=== PATIENT | male | born 1985 | race Caucasian/White ===

== ENCOUNTER 2017-10-03 23:56 | Emergency (ER) | payer OTHER ==
[~2017-10-03] VITALS: Wt 158.8 kg
[2017-10-03 23:56] VITALS: BP 147/84
[~2017-10-03 23:56] MED LIST: ALBUTEROL0.09 MG/A2 IH; AMOXICILLIN500 MG PO; AMOXIL500 MG PO; FLEXERIL10 MG PO; HYDROCODONE BIT1 T11 PO; MOTRIN800 MG PO; NAPROSYN500 MG PO; NKHM; PREDNICOT20 MG PO; PREDNISONE20 MG PO; VIBRAMYCIN100 MG PO; ZITHROMAX Z PA250 MG PO
[2017-10-04] MEDS ORDERED: MELATONIN1 MG PO (00:09)
[2017-10-04] MEDS ORDERED: ALLOPURINOL300 MG PO (00:09)
[2017-10-04] MEDS ORDERED: CIPRODEX 0.3%-7.5 ML OT (00:30)
[2017-10-04] MEDS ORDERED: CIPRO500 MG PO (00:30)
== END 2017-10-04 00:36 | disposition home or self-care (01) ==
LOC: ED 23:56
DX: H60.91 Unspecified otitis externa, right ear (principal); F17.200 Nicotine dependence, unspecified, uncomplicated; Z79.899 Other long term (current) drug therapy

== ENCOUNTER → 2018-10-15 | Outpatient (CLI) | payer OTHER ==
[~2018-10-15] MED LIST changes: +ALLOPURINOL300 MG PO; +AVPAK AZITHROM250 MG PO; +CIPRO500 MG PO; +CIPRODEX 0.3%-7.5 ML OT; +MELATONIN1 MG PO; +MUCINEX1200 M1 PO; +PREDNISONE50 MG PO; +PROAIR HFA8.5 GM INH
== END | disposition home or self-care (01) ==
LOC: RESCLI 12:38
DX: J45.909 Unspecified asthma, uncomplicated (principal); I10 Essential (primary) hypertension; M10.9 Gout, unspecified; G47.00 Insomnia, unspecified; G47.33 Obstructive sleep apnea (adult) (pediatric); Z71.89 Other specified counseling; Z79.899 Other long term (current) drug therapy; Z88.8 Allergy status to other drugs, medicaments and biological substances

== ENCOUNTER → 2018-12-07 | Outpatient (CLI) | payer OTHER ==
[2018-12-07 13:45] LABS: BASO # 0.1 10*3/uL (0.0-0.1); BASO % 0.8 % (0.0-1.0); EOS # 0.1 10*3/uL (0.0-0.4); EOS % 1.2 % (1.0-4.0); HEMOGLOBIN 16.5 g/dl (14.0-18.0); LYMPH # 2.7 10*3/uL (1.3-4.4); LYMPH % 29.2 % (27.0-41.0); MEAN CELL VOLUME 93.7 fl (80.0-94.0); MEAN CORPUSCULAR HGB 31.5 pg (27.0-31.0); MEAN CORPUSCULAR HGB CONC 33.7 g/dl (33.0-37.0); MEAN PLATELET VOLUME 11.7 fl (9.6-12.3); MONO # 1.1 10*3/uL (0.1-1.0); MONO % 11.6 % (3.0-9.0); NEUT # 5.3 10*3/uL (2.3-7.9); NEUT % 56.8 % (47.0-73.0); PLATELET COUNT AUTOMATED 214 10*3/uL (130-400); RED BLOOD COUNT 5.23 10*6/uL (4.50-5.90); RED CELL DISTRI WIDTH 13.7 % (0-14.5); WHITE BLOOD COUNT 9.3 10*3/uL (4.8-10.8)
[2018-12-07 14:16] LABS: ALBUMIN 3.6 gm/dl (3.1-4.5); ALKALINE PHOSPHATASE 42 U/L (45-117); BUN 11 mg/dl (7-24); CHLORIDE 103 mmol/L (98-107); CHOLESTEROL 188 mg/dL (<200); CREATININE 0.85 mg/dL (0.70-1.30); HDL CHOLESTEROL 29 mg/dl (40-60); POTASSIUM 3.9 mmol/L (3.5-5.1); SGOT/AST 26 IU/L (3-35); SGPT/ALT 49 U/L (12-78); SODIUM 139 mmol/L (136-145); TOTAL PROTEIN 7.1 gm/dL (6.4-8.2); TRIGLYCERIDES 502 mg/dl (<150); URIC ACID 6.3 mg/dL (3.5-7.2)
[2018-12-07 14:36] LABS: VITAMIN D, 25-HYDROXY 14.4 ng/mL (30-100)
[2018-12-07 14:40] LABS: FREE T4 0.86 ng/dl (0.76-1.46)
== END | disposition home or self-care (01) ==
LOC: LAB 13:15
PROVIDERS: Student in an Organized Health Care Education/Training Program
DX: I10 Essential (primary) hypertension (principal)

== ENCOUNTER → 2018-12-11 | Outpatient (CLI) | payer OTHER | END | disposition home or self-care (01) | LOC: RESCLI 00:34 | DX: J45.909 Unspecified asthma, uncomplicated (principal); M10.9 Gout, unspecified; G47.00 Insomnia, unspecified; I10 Essential (primary) hypertension; E66.01 Morbid (severe) obesity due to excess calories; Z72.0 Tobacco use; Z71.6 Tobacco abuse counseling; B07.8 Other viral warts; Z79.899 Other long term (current) drug therapy; Z88.8 Allergy status to other drugs, medicaments and biological substances ==

== ENCOUNTER → 2019-01-13 | Outpatient (CLI) | payer OTHER | END | disposition home or self-care (01) | LOC: RESCLI 01:20 | DX: Z23 Encounter for immunization (principal); J45.909 Unspecified asthma, uncomplicated; M10.9 Gout, unspecified; G47.00 Insomnia, unspecified; I10 Essential (primary) hypertension; E78.1 Pure hyperglyceridemia; E66.01 Morbid (severe) obesity due to excess calories; F17.200 Nicotine dependence, unspecified, uncomplicated; Z68.43 Body mass index [BMI] 50.0-59.9, adult; Z71.6 Tobacco abuse counseling; Z79.899 Other long term (current) drug therapy ==

== ENCOUNTER → 2019-03-23 | Outpatient (CLI) | payer OTHER | END | disposition home or self-care (01) | LOC: RESCLI 02:16 | DX: J45.909 Unspecified asthma, uncomplicated (principal); M10.9 Gout, unspecified; G47.00 Insomnia, unspecified; I10 Essential (primary) hypertension; E55.9 Vitamin D deficiency, unspecified; B97.89 Other viral agents as the cause of diseases classified elsewhere; J01.90 Acute sinusitis, unspecified; E66.01 Morbid (severe) obesity due to excess calories; Z71.6 Tobacco abuse counseling; Z79.899 Other long term (current) drug therapy; Z72.0 Tobacco use ==

== ENCOUNTER → 2019-04-26 | Outpatient (CLI) | payer OTHER ==
[2019-04-26 17:02] LABS: FREE T4 0.75 ng/dl (0.76-1.46)
== END | disposition home or self-care (01) ==
LOC: LAB 15:37
PROVIDERS: Internal Medicine
DX: I10 Essential (primary) hypertension (principal); E55.9 Vitamin D deficiency, unspecified

== ENCOUNTER → 2019-04-27 | Outpatient (CLI) | payer OTHER | END | disposition home or self-care (01) | LOC: RESCLI 05:45 | DX: Z71.6 Tobacco abuse counseling (principal); J45.909 Unspecified asthma, uncomplicated; M10.9 Gout, unspecified; G47.00 Insomnia, unspecified; I10 Essential (primary) hypertension; E55.9 Vitamin D deficiency, unspecified; J01.90 Acute sinusitis, unspecified; E78.1 Pure hyperglyceridemia; E66.01 Morbid (severe) obesity due to excess calories; Z72.0 Tobacco use; Z79.899 Other long term (current) drug therapy ==

== ENCOUNTER 2020-05-09 16:38 | Inpatient (IN) | payer OTHER ==
[~2020-05-09] VITALS: Ht 172.7 cm; Wt 156.5 kg
[2020-05-09 16:45] VITALS: BP 154/89
[2020-05-09 19:51] LABS: BASO # 0.1 10*3/uL (0.0-0.1); BASO % 0.4 % (0.0-1.0); EOS # 0.1 10*3/uL (0.0-0.4); EOS % 0.6 % (1.0-4.0); HEMATOCRIT 52.1 % (42.0-52.0); LYMPH # 1.7 10*3/uL (1.3-4.4); LYMPH % 10.3 % (27.0-41.0); MEAN CELL VOLUME 93.7 fl (80.0-94.0); MEAN CORPUSCULAR HGB 30.8 pg (27.0-31.0); MEAN CORPUSCULAR HGB CONC 32.8 g/dl (33.0-37.0); MEAN PLATELET VOLUME 11.4 fl (9.6-12.3); MONO # 1.5 10*3/uL (0.1-1.0); MONO % 8.9 % (3.0-9.0); NEUT # 13.2 10*3/uL (2.3-7.9); NEUT % 79.4 % (47.0-73.0); PLATELET COUNT AUTOMATED 237 10*3/uL (130-400); RED BLOOD COUNT 5.56 10*6/uL (4.50-5.90); RED CELL DISTRI WIDTH 14.6 % (0-14.5); WHITE BLOOD COUNT 16.7 10*3/uL (4.8-10.8)
[2020-05-09 19:54] VITALS: BP 148/106
[2020-05-09 20:10] LABS: ALBUMIN 4.1 gm/dl (3.1-4.5); ALKALINE PHOSPHATASE 54 U/L (45-117); BUN 12 mg/dl (7-24); CHLORIDE 103 mmol/L (98-107); POTASSIUM 3.6 mmol/L (3.5-5.1); SGOT/AST 14 IU/L (3-35); SGPT/ALT 37 U/L (12-78); SODIUM 137 mmol/L (136-145); TOTAL PROTEIN 8.1 gm/dL (6.4-8.2)
[2020-05-09] MEDS ORDERED: VITAMIN D31250 MCG PO (22:21)
[2020-05-09] MEDS ORDERED: CARVEDILOL3.125 MG PO (22:23)
[2020-05-09] MEDS ORDERED: LISINOPRIL10 M1 PO (22:23)
[2020-05-09] MEDS ORDERED: BUPROPION HYDR150 M3 PO (22:23)
[2020-05-09] MEDS ORDERED: Synthroid,Levo25 MCG PO (22:24)
[2020-05-09] MEDS ORDERED: VITAMIN D350 MC2 PO (22:24)
[2020-05-09] MEDS ORDERED: ONE-DAILY MULT1 EAC1 PO (22:25)
[2020-05-10] VITALS (12 sets, daily range): BP systolic 130–167; BP diastolic 75–106
[2020-05-10 06:17] LABS: HEMATOCRIT 46.2 % (42.0-52.0); MEAN CELL VOLUME 94.5 fl (80.0-94.0); MEAN CORPUSCULAR HGB 30.5 pg (27.0-31.0); MEAN CORPUSCULAR HGB CONC 32.3 g/dl (33.0-37.0); MEAN PLATELET VOLUME 12.2 fl (9.6-12.3); PLATELET COUNT AUTOMATED 194 10*3/uL (130-400); RED BLOOD COUNT 4.89 10*6/uL (4.50-5.90); RED CELL DISTRI WIDTH 14.7 % (0-14.5); WHITE BLOOD COUNT 16.3 10*3/uL (4.8-10.8)
[2020-05-10 06:27] LABS: BUN 8 mg/dl (7-24); CHLORIDE 106 mmol/L (98-107); CREATININE 0.82 mg/dL (0.70-1.30); POTASSIUM 3.5 mmol/L (3.5-5.1); SODIUM 137 mmol/L (136-145)
[2020-05-10 06:39] LABS: FREE T4 0.98 ng/dl (0.76-1.46)
[2020-05-10 07:49] LABS: ATYPICAL LYMPHS 1 % (0-0); PLATELET SUFFICIENCY NORMAL (NORMAL); TOTAL CELLS COUNTED 100 #CELLS
[2020-05-11] VITALS: BP 136/78
[2020-05-11 06:20] LABS: BASO # 0.1 10*3/uL (0.0-0.1); BASO % 0.5 % (0.0-1.0); EOS # 0.1 10*3/uL (0.0-0.4); HEMATOCRIT 46.3 % (42.0-52.0); LYMPH # 2.5 10*3/uL (1.3-4.4); LYMPH % 23.6 % (27.0-41.0); MEAN CELL VOLUME 95.7 fl (80.0-94.0); MEAN CORPUSCULAR HGB CONC 32.4 g/dl (33.0-37.0); MEAN PLATELET VOLUME 11.8 fl (9.6-12.3); MONO # 1.1 10*3/uL (0.1-1.0); MONO % 10.2 % (3.0-9.0); NEUT # 6.7 10*3/uL (2.3-7.9); NEUT % 64.2 % (47.0-73.0); PLATELET COUNT AUTOMATED 195 10*3/uL (130-400); RED BLOOD COUNT 4.84 10*6/uL (4.50-5.90); RED CELL DISTRI WIDTH 14.8 % (0-14.5); WHITE BLOOD COUNT 10.4 10*3/uL (4.8-10.8)
[2020-05-11 07:47] LABS: BUN 8 mg/dl (7-24); CHLORIDE 107 mmol/L (98-107); CREATININE 0.82 mg/dL (0.70-1.30); POTASSIUM 3.7 mmol/L (3.5-5.1); SODIUM 138 mmol/L (136-145)
[2020-05-11 08:00] VITALS: BP 133/81
[2020-05-11 12:00] VITALS: BP 110/63
[2020-05-11] MEDS ORDERED: AUGMENTIN 875-875 MG PO (13:45)
[2020-05-11] MEDS ORDERED: HYDROCODONE-AC1 EAC1 PO (15:11)
== END 2020-05-11 15:50 | disposition home or self-care (01) | DRG 720 ==
LOC: ED 16:38 → EDHOLD 22:01 → 4E 22:01
PROVIDERS: Emergency Medicine; Internal Medicine; Student in an Organized Health Care Education/Training Program; ADMIT Internal Medicine; ATTEND Internal Medicine
PROC: 0CDWXZ0 Extraction of Upper Tooth, Single, External Approach (ICD-10-PCS; principal; 2020-05-11)
PROC: 0C9W0Z0 Drainage of Upper Tooth, Open Approach, Single (ICD-10-PCS; 2020-05-11)
DX: A41.9 Sepsis, unspecified organism (principal); K04.7 Periapical abscess without sinus; M27.2 Inflammatory conditions of jaws; E03.9 Hypothyroidism, unspecified; E55.9 Vitamin D deficiency, unspecified; F17.210 Nicotine dependence, cigarettes, uncomplicated; E78.5 Hyperlipidemia, unspecified; L03.211 Cellulitis of face; F33.1 Major depressive disorder, recurrent, moderate; F51.01 Primary insomnia; J45.20 Mild intermittent asthma, uncomplicated; I10 Essential (primary) hypertension; M1A.9XX0 Chronic gout, unspecified, without tophus (tophi); J30.2 Other seasonal allergic rhinitis; Z82.49 Family history of ischemic heart disease and other diseases of the circulatory system; Z82.0 Family history of epilepsy and other diseases of the nervous system; Z79.899 Other long term (current) drug therapy; Z71.6 Tobacco abuse counseling

== ENCOUNTER → 2021-11-01 | Outpatient (CLI) | payer OTHER ==
[~2021-11-01] MED LIST changes: +AUGMENTIN 875-875 MG PO; +BUPROPION HYDR150 M3 PO; +CARVEDILOL3.125 MG PO; +HYDROCODONE-AC1 EAC1 PO; +LISINOPRIL10 M1 PO; +ONE-DAILY MULT1 EAC1 PO; +Synthroid,Levo25 MCG PO; +VITAMIN D31250 MCG PO; +VITAMIN D350 MC2 PO
[2021-11-01 16:33] LABS: ALKALINE PHOSPHATASE 46 U/L (45-117); BUN 9 mg/dl (7-24); CHLORIDE 102 mmol/L (98-107); CREATININE 1.07 mg/dL (0.70-1.30); SGOT/AST 37 IU/L (3-35); SGPT/ALT 57 U/L (12-78); SODIUM 136 mmol/L (136-145); TOTAL PROTEIN 7.1 gm/dL (6.4-8.2)
== END | disposition home or self-care (01) ==
LOC: LAB 15:55
PROVIDERS: ATTEND Internal Medicine
DX: E78.1 Pure hyperglyceridemia (principal); Z79.899 Other long term (current) drug therapy; R11.2 Nausea with vomiting, unspecified; Z87.898 Personal history of other specified conditions

== ENCOUNTER → 2022-04-17 | Outpatient (CLI) | payer OTHER | END | disposition home or self-care (01) | LOC: D 13:51 | PROVIDERS: ATTEND Internal Medicine | DX: E66.01 Morbid (severe) obesity due to excess calories (principal); Z68.43 Body mass index [BMI] 50.0-59.9, adult; R63.4 Abnormal weight loss ==